=== PATIENT | male | born 1960 | race Hispanic/Latino ===

== ENCOUNTER 2019-12-29 09:06 | Emergency (ER) | payer BC, SELFPAY ==
[2019-12-29 10:15] LABS: Bilirubin Negative (Negative); Blood, Urine Negative (Negative); Clarity Clear (Clear); Glucose, Urine (Dipstick) Greater than 1000 mg/dL (Negative); Leukocyte Negative Leu/uL (Negative); Nitrite Negative (Negative); Protein, Urine (Dipstick) 20 mg/dL (Neg-Trace); Urobilinogen Normal mg/dL (Less than 2)
== END 2019-12-29 10:52 | disposition home or self-care (01) ==
LOC: ERS 09:06
DX: B37.42 Candidal balanitis (principal); E11.65 Type 2 diabetes mellitus with hyperglycemia; F17.290 Nicotine dependence, other tobacco product, uncomplicated
CPT/HCPCS: 81003; 99283

== ENCOUNTER 2024-05-29 19:21 | Emergency (ER) | payer SELFPAY | END 2024-05-29 22:24 | disposition home or self-care (01) | LOC: ERS 19:21 | DX: L03.116 Cellulitis of left lower limb (principal); E11.9 Type 2 diabetes mellitus without complications | CPT/HCPCS: 36415; 80053; 83605; 85025; 87040 ==

== ENCOUNTER 2024-12-26 08:05 | Emergency (ER) | payer OTHER, SELFPAY ==
[2024-12-26] MEDS ORDERED: Ondansetron ODT 4 MG TAB ONE (09:09)
[2024-12-26] MEDS ORDERED: Acetaminophen 500 MG TAB ONE (09:09)
[2024-12-26 09:11] LABS: #Basophils 0.03 10x3/uL (0.0-0.2); #Eosinophils Less than 0.03 10x3/uL (0.0-0.7); %Basophils 0.2 % (0.0-1.0); %Eosinophils 0.2 % (0.0-10.0); %Lymphocytes 13.9 % (21.0-51.0); %Monocytes 9.1 % (0.0-10.0); %Neutrophils 76.1 % (42.0-75.0); Hematocrit 47.6 % (42.0-52.0); Hemoglobin 16.1 g/dL (14.0-18.0); Mean Corpuscular HGB CONC 33.8 g/dL (32.0-36.0); Mean Corpuscular Hemoglobin 26.8 pg (27.0-31.0); Mean Corpuscular Volume 79.3 fL (78.0-98.0); Mean Platelet Volume 10.7 fL (7.4-10.4); Platelet Count 223 10x3/uL (130-400); RBC Distribution Width 14.3 % (11.5-14.5)
[2024-12-26 09:33] LABS: ALT (SGPT) 35 U/L (Less than 45); AST (SGOT) 37 U/L (11-34); Albumin 3.8 g/dL (3.1-4.5); Alkaline Phosphatase 106 U/L (40-110); Anion Gap 15 mmol/L (10-20); BUN (Urea Nitrogen) 11 mg/dL (8.4-25.7); Bilirubin, Total 1.3 mg/dL (0.3-1.2); Calc. Creatinine Clearance 0 mL/min (70-130); Calcium 9.1 mg/dL (7.8-10.44); Carbon Dioxide 24 mmol/L (23-31); Chloride 101 mmol/L (98-107); Estimated GFR 80; Globulin 4.3 g/dL (2.4-3.5); Glucose 166 mg/dL (80-115); Potassium 3.9 mmol/L (3.5-5.1); Protein, Total 8.1 g/dL (5.8-8.1); Sodium 136 mmol/L (136-145)
[2024-12-26] MEDS ORDERED: cefTRIAXone (ROCEPHIN) 1 GM VIAL ONE (10:27)
[2024-12-26 11:19] LABS: Bacteria/HPF 4+ HPF (None Seen); Bilirubin Negative (Negative); Blood, Urine 2+ (Negative); CAUTI Indications for Culture Dysuria,urgency,freq; Clarity Turbid (Clear); Glucose, Urine (Dipstick) 300 mg/dL (Negative); Ketone, Urine 10 mg/dL (Negative); Leukocyte 500 Leu/uL (Negative); Nitrite 2+ (Negative); Protein, Urine (Dipstick) 70 mg/dL (Neg-Trace); Specific Gravity, Urine 1.028 (1.002-1.036); Squamous Epithelial 0-3 HPF (0-3); WBC/HPF Greater than 50 HPF (0-3); pH, Urine 5.5 (5.0-9.0)
[2024-12-26 11:20] LABS: Urine Culture Reflex Yes Yes
[2024-12-26 11:59] LABS: Base Excess -3.2 mEq/L (-2.0 to +3.0); Calcium, Ionized (venous) 1.14 mmol/L (1.16-1.32); Chloride (VBG) 98 mmol/L (98-106); Hematocrit-VBG 48 % (42.0-52.0); Hemoglobin (Hb) 16.4 g/dL (13.1-17.2); Potassium (VBG) 3.95 mmol/L (3.70-5.30); Sodium 137 mmol/L (133-146); pH (venous) 7.357 (7.32-7.43)
== END 2024-12-26 12:15 | disposition home or self-care (01) ==
LOC: ERS 08:05
DX: N39.0 Urinary tract infection, site not specified (principal); R52 Pain, unspecified; E11.9 Type 2 diabetes mellitus without complications; I10 Essential (primary) hypertension; E78.5 Hyperlipidemia, unspecified; F17.290 Nicotine dependence, other tobacco product, uncomplicated; Z79.84 Long term (current) use of oral hypoglycemic drugs; Z79.899 Other long term (current) drug therapy
CPT/HCPCS: 36415; 71045; 80053; 81001; 82805; 83605; 85025; 87040; 87077; 87086; 87186; 87428; 94760; 96374; J0696; Q0162